=== PATIENT | male | born 1940 | race Two or more races ===

== ENCOUNTER 2019-12-12 | Emergency (ER) | payer SELFPAY ==
[2019-12-12] MEDS ORDERED: [UNRECOGNIZED DRUG - OTHER] PO (11:16)
[2019-12-12] MEDS ORDERED: [UNRECOGNIZED DRUG - OTHER] PO (11:17)
[2019-12-12] MEDS ORDERED: [UNRECOGNIZED DRUG - OTHER] PO (11:17)
[2019-12-12] MEDS ORDERED: MONTELUKAST SOD10 MG PO (11:18)
[2019-12-12] MEDS ORDERED: [UNRECOGNIZED DRUG - OTHER] PO (11:18)
[2019-12-12] MEDS ORDERED: HYDROCO/APAP1 TA9 PO (13:04)
[2019-12-12] MEDS ORDERED: MEDDOSEPAK PO (13:04)
== END 2019-12-12 13:40 | disposition home or self-care (01) | DRG 552 ==
DX: M54.42 Lumbago with sciatica, left side (principal); I10 Essential (primary) hypertension; Z53.1 Procedure and treatment not carried out because of patient's decision for reasons of belief and group pressure

== ENCOUNTER 2019-12-19 20:59 | Emergency (ER) | payer SELFPAY ==
[~2019-12-19 20:59] MED LIST: HYDROCO/APAP1 TA9 PO; MEDDOSEPAK PO; MONTELUKAST SOD10 MG PO; [UNRECOGNIZED DRUG - OTHER] PO; [UNRECOGNIZED DRUG - OTHER] PO; [UNRECOGNIZED DRUG - OTHER] PO; [UNRECOGNIZED DRUG - OTHER] PO
[2019-12-19] MEDS ORDERED: STERAPRED DS10 MG PO (21:40)
[2019-12-19] MEDS ORDERED: LORTAB 5/3255 MG PO (21:40)
[2019-12-19 21:52] VITALS: BP 140/94
== END 2019-12-19 22:00 | disposition home or self-care (01) | DRG 552 ==
LOC: ED 20:59
DX: M54.32 Sciatica, left side (principal); I10 Essential (primary) hypertension